=== PATIENT | female | born 1940 | race Caucasian/White ===

== ENCOUNTER 2018-10-25 12:08 | Inpatient (IN) | payer MEDICARE ==
[~2018-10-25] VITALS: Ht 160 cm; Wt 69.5 kg
[~2018-10-25 12:08] MED LIST: ASPI-1071 PO; ATOR20TA66 PO; CLOP75TA35 PO; GLUC1KIT2 SUBCUT; LANTUS SQ; NITR0.4T51 SL; PANT40TA4 PO
[2018-10-25] MEDS ORDERED: CLOP75TA33 PO (12:54)
[2018-10-25] MEDS ORDERED: NITR0.4T48 SL (12:54)
[2018-10-25] MEDS ORDERED: ATOR20TA66 PO (12:54)
[2018-10-25] MEDS ORDERED: ASPI-611 PO (12:54)
[2018-10-25] MEDS ORDERED: METO-395 PO (12:54)
[2018-10-25] MEDS ORDERED: INSU100V9 SQ (12:54)
[2018-10-25] MEDS ORDERED: HYDROcodone/acetaminophen 5mg/325mg tablet PO ONE (14:30)
[2018-10-25] MEDS ORDERED: ondansetron 4mg rapidly disintigrating tab PO ONE (14:30)
[2018-10-25] MEDS ORDERED: mag hydrox/Alum hydrox/simeth 30ml oral suspension PO PRN (15:30)
[2018-10-25] MEDS ORDERED: morphine 2 MG/ML inj. syringe IV PRN (15:30)
[2018-10-25] MEDS ORDERED: magnesium hydroxide 30ml (MOM) UD suspension PO PRN (15:30)
[2018-10-25] MEDS ORDERED: ondansetron/PF 4mg/2ml inj IV PRN (15:30)
[2018-10-25 15:36] LABS: BASOPHILS # (AUTO) 0.2 X10'3 (0-0.2); EOSINOPHILS # (AUTO) 0.3 X10'3 (0-0.9); EOSINOPHILS % (AUTO) 3.2 % (0-6); HEMATOCRIT 41.6 % (35.0-45.0); HEMOGLOBIN 13.8 g/dl (12.0-16.0); LYMPHOCYTES # (AUTO) 2.3 X10'3 (1.1-4.8); MEAN CORPUSCULAR HEMOGLOBIN 28.3 PG (27.0-31.0); MEAN CORPUSCULAR HGB CONC 33.1 g/dL (33.0-36.5); MEAN CORPUSCULAR VOLUME 85.3 FL (78-98); MONOCYTES % (AUTO) 9.9 % (2-12); NEUTROPHILS # (AUTO) 6.5 X10'3 (1.8-7.7); NEUTROPHILS % (AUTO) 62.9 % (42-75); PLATELET COUNT 262 X10'3 (140-440); RED BLOOD COUNT 4.87 X10'6 (4.20-5.60); RED CELL DISTRIBUTION WIDTH 13.7 % (11.5-14.5); WHITE BLOOD COUNT 10.4 X10'3 (4.5-11.0)
[2018-10-25 15:40] LABS: CLARITY,URINE CLEAR (Clear); COLOR,URINE STRAW (Yellow); GLUCOSE, URINE NEGATIVE (Neg); KETONES,URINE NEGATIVE (Neg); LEUKOCYTE ESTERASE ,URINE NEGATIVE (Neg); NITRITES, URINE NEGATIVE (Neg); OCCULT BLOOD,URINE NEGATIVE (Neg); PROTEIN,URINE NEGATIVE (Neg); UROBILINOGEN,URINE 0.2 E.U/dL (0.2-1.0)
[2018-10-25 15:41] LABS: UA COLLECTION TYPE STRAIGHT CATH
[2018-10-25 15:50] LABS: ALANINE AMINOTRANSFERASE 27 U/L (12-78); ALBUMIN 3.5 G/DL (3.4-5.0); ALBUMIN/GLOBULIN RATIO 0.9 (1.1-1.5); ALKALINE PHOSPHATASE 73 IU/L (46-116); ANION GAP 8 (8-16); ASPARTATE AMINO TRANSFERASE 19 U/L (10-37); BLOOD UREA NITROGEN 21 MG/DL (7-18); BUN/CREATININE RATIO 23.6 (6.6-38.0); CALCIUM 8.6 MG/DL (8.5-10.1); CHLORIDE 106 MMOL/L (99-107); CREATININE 0.89 MG/DL (0.40-0.90); GLUCOSE 124 MG/DL (70-104); SODIUM 140 MMOL/L (135-145); TOTAL PROTEIN 7.5 G/DL (6.4-8.2); eGFR 61 ML/MIN
[2018-10-25] MEDS: normal saline 1000ml 1,000 ML IV SCH (15:54)
--- NOTE | 2018-10-25 16:30 | NUR ---
I have received patient report from [facility]
[2018-10-25 18:00] VITALS: BP 130/58
--- NOTE | 2018-10-25 18:17 | NUR ---
Patient report given to Breanna
--- NOTE | 2018-10-25 18:25 | NUR ---
Received report from Shereen RU[facility], assumed care of patient.
[2018-10-25] MEDS: heparin, porcine 5000 units/ml vial SQ SCH (20:23)
[2018-10-25] MEDS: insulin glargine (Lantus) pen - multi-dose SQ SCH (20:49)
[2018-10-25] MEDS ORDERED: INSULIN GLARGINE HUM REC ANLOG 12 UNIT SQ SCH (21:00)
[2018-10-25] MEDS: acetaminophen 325mg tablet PO PRN (21:06)
[2018-10-25 22:00] VITALS: BP 111/56
[2018-10-26] VITALS (21 sets, daily range): BP systolic 100–161; BP diastolic 46–80
[2018-10-26] MEDS: morphine 2 MG/ML inj. syringe IV PRN ×5 (00:37→20:50)
[2018-10-26] MEDS: normal saline 1000ml 1,000 ML IV SCH ×3 (02:41→16:16)
--- NOTE | 2018-10-26 06:10 | NUR ---
Gave report to Shereen RUBY.
--- NOTE | 2018-10-26 06:27 | NUR ---
I have received patient report from Breanna [facility]
[2018-10-26 06:52] LABS: BASOPHILS # (AUTO) 0.2 X10'3 (0-0.2)
[2018-10-26 06:56] LABS: BASOPHILS % (AUTO) 1.9 % (0-1); EOSINOPHILS # (AUTO) 0.5 X10'3 (0-0.9); EOSINOPHILS % (AUTO) 5.5 % (0-6); HEMATOCRIT 38.2 % (35.0-45.0); HEMOGLOBIN 12.6 g/dl (12.0-16.0); LYMPHOCYTES # (AUTO) 2.4 X10'3 (1.1-4.8); LYMPHOCYTES % (AUTO) 29.4 % (21-51); MEAN CORPUSCULAR HEMOGLOBIN 28.3 PG (27.0-31.0); MEAN CORPUSCULAR HGB CONC 32.9 g/dL (33.0-36.5); MEAN CORPUSCULAR VOLUME 85.9 FL (78-98); MEAN PLATELET VOLUME 8.8 FL (7.4-10.4); MONOCYTES # (AUTO) 0.9 X10'3 (0-0.9); MONOCYTES % (AUTO) 10.5 % (2-12); NEUTROPHILS # (AUTO) 4.4 X10'3 (1.8-7.7); NEUTROPHILS % (AUTO) 52.7 % (42-75); PLATELET COUNT 231 X10'3 (140-440); RED BLOOD COUNT 4.45 X10'6 (4.20-5.60); RED CELL DISTRIBUTION WIDTH 13.7 % (11.5-14.5); WHITE BLOOD COUNT 8.3 X10'3 (4.5-11.0)
[2018-10-26 06:57] LABS: ALBUMIN 2.9 G/DL (3.4-5.0); ANION GAP 6 (8-16); BLOOD UREA NITROGEN 20 MG/DL (7-18); CALCIUM 7.8 MG/DL (8.5-10.1); CHLORIDE 108 MMOL/L (99-107); CREATININE 0.87 MG/DL (0.40-0.90); GLUCOSE 116 MG/DL (70-104); POTASSIUM 4.2 MMOL/L (3.5-5.1); SODIUM 140 MMOL/L (135-145); TOTAL CARBON DIOXIDE 25.7 MMOL/L (24-32); eGFR 63 ML/MIN
[2018-10-26] MEDS ORDERED: non-formulary drug (Aspirin (Aspir 81) 1 TAB) PO SCH (08:00)
[2018-10-26] MEDS: clopidogrel 75mg tablet PO SCH (08:20)
[2018-10-26] MEDS: aspirin 81mg tablet.DR PO SCH (08:20)
[2018-10-26] MEDS: heparin, porcine 5000 units/ml vial SQ SCH ×2 (08:23→20:50)
[2018-10-26] MEDS: metoprolol succinate 25mg (24-HOUR) SR. Tablet PO SCH (08:23)
[2018-10-26] MEDS: atorvastatin 20mg tablet PO SCH (08:24)
[2018-10-26] MEDS: acetaminophen 325mg tablet PO PRN (08:24)
[2018-10-26] MEDS ORDERED: aspirin 81mg tab.chew PO SCH (08:30)
--- NOTE | 2018-10-26 09:00 | NUR ---
CALLED [facility] AND TOLD HER THE PATIENT WAS GETTING HEPARIN, PLAVIX AND ASPIRIN, SHE CHECKED WITH ANESTHESIA AND SHE CALLED ME BACK SAID IT WAS OKAY TO GIVE THESE MEDS.
--- NOTE | 2018-10-26 09:45 | NUR ---
DM consult: Pt with T2DM with A1c 7.2. Pt admit with left femoral neck fracture s/p fall, currently in surgery holding room pending surgery. Pt previously admitted and provided with written DM ed with referral to outpatient DM class and RD contact information 09/06/18. Will continue to follow and monitor need for f/u verbal DM education. Addendum: 10/26/18 at [address] Amended: Links added.
--- NOTE | 2018-10-26 13:34 | NUR ---
PATIENT REPORT CALLED TO [facility] IN [facility]
[2018-10-26] MEDS ORDERED: ringers solution, lacted 1,000 ML IV SCH (13:54)
[2018-10-26] MEDS ORDERED: morphine 4 MG/ML inj SYRINge IV PRN ×2 (13:55)
[2018-10-26] MEDS ORDERED: meperidine/PF 25mg/ml syringe IV PRN ×3 (13:55)
[2018-10-26] MEDS ORDERED: proCHLORperazine 10 MG/2 ml inj IV PRN (13:55)
[2018-10-26] MEDS ORDERED: ondansetron/PF 4mg/2ml inj IV PRN (13:55)
[2018-10-26 14:07] LABS: PARTIAL THROMBOPLASTIN TIME 30 SECONDS (22-32)
[2018-10-26] MEDS ORDERED: fentaNYL/PF 50MCG/1 ML 2ML syringe ONE (14:09)
[2018-10-26] MEDS ORDERED: midazolam 2 mg/2 ml injection ONE (14:09)
[2018-10-26] MEDS ORDERED: desflurane 240ml liquid inh. IH ONE (14:10)
[2018-10-26] MEDS ORDERED: ceFAZolin 1000mg inj ONE ×2 (14:29)
[2018-10-26] MEDS ORDERED: etomidate 2mg/ml inj. ONE (14:30)
[2018-10-26] MEDS ORDERED: BUPIVAcaine/PF 2.5 mg/ml (0.25%) 30ml vial ONE (14:40)
[2018-10-26] MEDS ORDERED: ondansetron/PF 4mg/2ml inj ONE (14:48)
[2018-10-26] MEDS ORDERED: dexamethasone sod phosphate 4mg/ml inj. ONE (14:48)
--- NOTE | 2018-10-26 15:07 | NUR ---
Received from OR via ORTHO BED WITH [facility], accompanied by Anesthesiologist YUMIKO and report given by Anesthesiolgist. PATIENT WITH IZAGUIRRE CATHETER PRESENT WITH CLEAR YELLOW URINE. LEFT HIP DRESSING IS CDI. NO DRAINAGE PRESENT. + DORSALIS PEDIS. Addendum: 10/26/18 at 1540 by Twan Tiwari RN, RN Amended: Links added.
--- NOTE | 2018-10-26 15:55 | NUR ---
I have received report from Twan [facility]
--- NOTE | 2018-10-26 15:57 | NUR ---
Report called to receiving nurse. Transferred via ORTHO BED WITH NO Belongings . Special Issues communicated to receiving nurse JENS RN.PATIENT VSS. STATES PAIN IS STARTING TO BEGIN, RN PRESENT TO ASSIST WITH SET UP, CALL LIGHT PRESENT. DRESSING STILL SPOTTY WITH BLOOD BUT INTACT. TELEMETRY ON AND NOTIFIED. SPOUSE ACCOMPANIED TO THE 4TH FLOOR. Addendum: 10/26/18 at 1612 by Twan Tiwari RN RN Amended: Links added.
[2018-10-26] MEDS: CLINDAMYCIN/D5W 900mg/50ml 50 ML IV SCH ×2 (16:16→23:41)
[2018-10-26] MEDS: HYDROcodone/acetaminophen 10/325mg tab PO PRN ×3 (17:05→23:03)
--- NOTE | 2018-10-26 18:29 | NUR ---
I spoke to Dr. Higgins and he said okay to order 2 norco instead of just one. Patient in severe pain, a second norco given.
--- NOTE | 2018-10-26 18:30 | NUR ---
Received report from Shereen RUBY, Assumed care of patient.
--- NOTE | 2018-10-26 18:30 | NUR ---
Patient report given to Breanna [facility]BY
[2018-10-26] MEDS: insulin glargine (Lantus) pen - multi-dose SQ SCH (21:01)
[2018-10-27 02:00] VITALS: BP 126/56
[2018-10-27] MEDS: normal saline 1000ml 1,000 ML IV SCH ×3 (03:49→22:44)
[2018-10-27] MEDS: HYDROcodone/acetaminophen 10/325mg tab PO PRN ×3 (04:47→15:32)
[2018-10-27 06:10] VITALS: BP 119/70
--- NOTE | 2018-10-27 06:30 | NUR ---
Gave report to Shereen RUBY.
--- NOTE | 2018-10-27 06:31 | NUR ---
I have received patient report from Breanna [facility]
[2018-10-27 07:26] LABS: BASOPHILS # (AUTO) 0.1 X10'3 (0-0.2); BASOPHILS % (AUTO) 0.5 % (0-1); EOSINOPHILS % (AUTO) 0 % (0-6); HEMATOCRIT 39.3 % (35.0-45.0); HEMOGLOBIN 13.2 g/dl (12.0-16.0); LYMPHOCYTES # (AUTO) 1.1 X10'3 (1.1-4.8); LYMPHOCYTES % (AUTO) 10.6 % (21-51); MEAN CORPUSCULAR HEMOGLOBIN 28.7 PG (27.0-31.0); MEAN CORPUSCULAR HGB CONC 33.5 g/dL (33.0-36.5); MEAN CORPUSCULAR VOLUME 85.6 FL (78-98); MEAN PLATELET VOLUME 8.8 FL (7.4-10.4); MONOCYTES # (AUTO) 0.7 X10'3 (0-0.9); MONOCYTES % (AUTO) 6.3 % (2-12); NEUTROPHILS # (AUTO) 8.7 X10'3 (1.8-7.7); NEUTROPHILS % (AUTO) 82.6 % (42-75); PLATELET COUNT 283 X10'3 (140-440); RED BLOOD COUNT 4.59 X10'6 (4.20-5.60); RED CELL DISTRIBUTION WIDTH 13.8 % (11.5-14.5); WHITE BLOOD COUNT 10.5 X10'3 (4.5-11.0)
[2018-10-27 07:49] LABS: ANION GAP 12 (8-16); BLOOD UREA NITROGEN 18 MG/DL (7-18); BUN/CREATININE RATIO 18.2 (6.6-38.0); CALCIUM 7.6 MG/DL (8.5-10.1); CHLORIDE 103 MMOL/L (99-107); CREATININE 0.99 MG/DL (0.40-0.90); GLUCOSE 145 MG/DL (70-104); POTASSIUM 4.3 MMOL/L (3.5-5.1); SODIUM 136 MMOL/L (135-145); TOTAL CARBON DIOXIDE 21.2 MMOL/L (24-32); eGFR 54 ML/MIN
[2018-10-27] MEDS: atorvastatin 20mg tablet PO SCH (08:08)
[2018-10-27] MEDS: clopidogrel 75mg tablet PO SCH (08:08)
[2018-10-27] MEDS: aspirin 81mg tablet.DR PO SCH (08:09)
[2018-10-27] MEDS: CLINDAMYCIN/D5W 900mg/50ml 50 ML IV SCH (08:10)
[2018-10-27] MEDS: metoprolol succinate 25mg (24-HOUR) SR. Tablet PO SCH (08:10)
[2018-10-27] MEDS: heparin, porcine 5000 units/ml vial SQ SCH ×2 (08:10→20:44)
[2018-10-27 10:00] VITALS: BP 93/44
[2018-10-27 14:00] VITALS: BP 109/56
[2018-10-27 18:00] VITALS: BP 115/43
--- NOTE | 2018-10-27 18:39 | NUR ---
PATIENT REPORT GIVEN TO [facility]
--- NOTE | 2018-10-27 18:52 | NUR ---
Patient in room ORTHO 4012. I have received report from celestina and had the opportunity to ask questions and assume patient care.
[2018-10-27] MEDS: insulin glargine (Lantus) pen - multi-dose SQ SCH (20:49)
[2018-10-27 22:00] VITALS: BP 119/53
[2018-10-28] MEDS: acetaminophen 325mg tablet PO PRN (00:37)
[2018-10-28 06:00] VITALS: BP 160/85
[2018-10-28 06:07] LABS: BASOPHILS # (AUTO) 0.1 X10'3 (0-0.2); BASOPHILS % (AUTO) 1.4 % (0-1); EOSINOPHILS # (AUTO) 0.5 X10'3 (0-0.9); EOSINOPHILS % (AUTO) 4.5 % (0-6); HEMATOCRIT 37.1 % (35.0-45.0); HEMOGLOBIN 12.1 g/dl (12.0-16.0); LYMPHOCYTES # (AUTO) 3.2 X10'3 (1.1-4.8); LYMPHOCYTES % (AUTO) 30.8 % (21-51); MEAN CORPUSCULAR HEMOGLOBIN 28.1 PG (27.0-31.0); MEAN CORPUSCULAR HGB CONC 32.7 g/dL (33.0-36.5); MEAN CORPUSCULAR VOLUME 85.9 FL (78-98); MEAN PLATELET VOLUME 8.6 FL (7.4-10.4); MONOCYTES # (AUTO) 0.9 X10'3 (0-0.9); MONOCYTES % (AUTO) 9.2 % (2-12); NEUTROPHILS # (AUTO) 5.6 X10'3 (1.8-7.7); NEUTROPHILS % (AUTO) 54.1 % (42-75); PLATELET COUNT 240 X10'3 (140-440); RED BLOOD COUNT 4.31 X10'6 (4.20-5.60); RED CELL DISTRIBUTION WIDTH 13.7 % (11.5-14.5); WHITE BLOOD COUNT 10.3 X10'3 (4.5-11.0)
--- NOTE | 2018-10-28 06:23 | NUR ---
Problems reprioritized. Patient report given, questions answered & plan of care reviewed with FLORI Hughes.
[2018-10-28 06:26] LABS: ALBUMIN 2.7 G/DL (3.4-5.0); ANION GAP 9 (8-16); BLOOD UREA NITROGEN 23 MG/DL (7-18); CALCIUM 7.9 MG/DL (8.5-10.1); CHLORIDE 111 MMOL/L (99-107); CREATININE 0.92 MG/DL (0.40-0.90); GLUCOSE 112 MG/DL (70-104); POTASSIUM 3.8 MMOL/L (3.5-5.1); SODIUM 141 MMOL/L (135-145); TOTAL CARBON DIOXIDE 21.5 MMOL/L (24-32); eGFR 59 ML/MIN
[2018-10-28] MEDS: HYDROcodone/acetaminophen 10/325mg tab PO PRN (07:27)
[2018-10-28] MEDS: atorvastatin 20mg tablet PO SCH (08:32)
[2018-10-28] MEDS: metoprolol succinate 25mg (24-HOUR) SR. Tablet PO SCH (08:32)
[2018-10-28] MEDS: clopidogrel 75mg tablet PO SCH (08:32)
[2018-10-28] MEDS: aspirin 81mg tablet.DR PO SCH (08:32)
[2018-10-28] MEDS: heparin, porcine 5000 units/ml vial SQ SCH (08:33)
[2018-10-28 11:03] VITALS: BP 118/42
== END 2018-10-28 14:45 | DRG 482 ==
LOC: ER 12:08 → ORTHO 4S 17:37
PROVIDERS: ADMIT Family Medicine; ATTEND Family Medicine
PROC: 0QH734Z Insertion of Internal Fixation Device into Left Upper Femur, Percutaneous Approach (ICD-10-PCS; principal; 2018-10-26 14:10)
DX: S72.032A Displaced midcervical fracture of left femur, initial encounter for closed fracture (principal); I25.10 Atherosclerotic heart disease of native coronary artery without angina pectoris; E11.9 Type 2 diabetes mellitus without complications; I10 Essential (primary) hypertension; W10.8XXA Fall (on) (from) other stairs and steps, initial encounter; Y93.01 Activity, walking, marching and hiking; I25.2 Old myocardial infarction; Z79.82 Long term (current) use of aspirin; Z87.891 Personal history of nicotine dependence; Y92.89 Other specified places as the place of occurrence of the external cause; Y99.8 Other external cause status; Z88.0 Allergy status to penicillin; Z98.42 Cataract extraction status, left eye; Z98.41 Cataract extraction status, right eye; Z79.899 Other long term (current) drug therapy; Z79.4 Long term (current) use of insulin; Z95.5 Presence of coronary angioplasty implant and graft
CPT/HCPCS: 36415; 71045; 73501; 73502; 76000; 80048; 80053; 81003; 82948; 85025; 85610; 85730; 87081; 93005; 97110; 97116; 97161; 97530; 99285; A4618; A6222; A7000; C1713; G0378; J0690; J1100; J1644; J1815; J2250; J2270; J2405; J3010; J3490; J7030; J7120

== ENCOUNTER 2023-02-07 13:31 | Inpatient (IN) | payer MEDICARE ==
[~2023-02-07] VITALS: Ht 167.6 cm; Wt 71.9 kg
[~2023-02-07 13:31] MED LIST changes: -ASPI-1071 PO; +ASPI-611 PO; +CLOP75TA33 PO; -CLOP75TA35 PO; -GLUC1KIT2 SUBCUT; +INSU100V9 SQ; -LANTUS SQ; +METO-395 PO; +NITR0.4T48 SL; -NITR0.4T51 SL; -PANT40TA4 PO
[2023-02-07 17:02] LABS: ALANINE AMINOTRANSFERASE 37 U/L (12-78); ALBUMIN 3.8 G/DL (3.4-5.0); ALBUMIN/GLOBULIN RATIO 0.9 (1.1-1.5); ALKALINE PHOSPHATASE 88 IU/L (46-116); ANION GAP 8 (8-16); ASPARTATE AMINO TRANSFERASE 34 U/L (10-37); BILIRUBIN,TOTAL 1.9 MG/DL (0.1-1.0); BLOOD UREA NITROGEN 26 MG/DL (7-18); BUN/CREATININE RATIO 26.5 (10.0-20.0); CALCIUM 8.9 MG/DL (8.5-10.1); CHLORIDE 100 MMOL/L (99-107); CREATININE 0.98 MG/DL (0.40-0.90); GLUCOSE 341 MG/DL (70-104); POTASSIUM 4.2 MMOL/L (3.5-5.1); SODIUM 132 MMOL/L (135-145); TOTAL CARBON DIOXIDE 23.8 MMOL/L (24-32); TOTAL PROTEIN 8.1 G/DL (6.4-8.2); eCRCL 40 ML/MIN; eGFR 54 ML/MIN
[2023-02-07 17:11] LABS: PRO BRAIN NATRIURETIC PEPTIDE 3442 PG/ML (0-450)
[2023-02-07 17:58] LABS: BASOPHILS # (AUTO) 0.2 X10'3 (0-0.2); BASOPHILS % (AUTO) 2.3 % (0-1); EOSINOPHILS # (AUTO) 0.2 X10'3 (0-0.9); MONOCYTES # (AUTO) 0.9 X10'3 (0-0.9); RED CELL DISTRIBUTION WIDTH 15.8 % (11.5-14.5)
[2023-02-07 17:59] LABS: EOSINOPHILS % (AUTO) 1.9 % (0-6); HEMATOCRIT 51.8 % (35.0-45.0); HEMOGLOBIN 16.8 g/dl (12.0-16.0); LYMPHOCYTES # (AUTO) 2.5 X10'3 (1.1-4.8); LYMPHOCYTES % (AUTO) 24.4 % (21-51); MEAN CORPUSCULAR HEMOGLOBIN 27.8 PG (27.0-31.0); MEAN CORPUSCULAR HGB CONC 32.5 g/dL (33.0-36.5); MEAN CORPUSCULAR VOLUME 85.6 FL (78-98); MEAN PLATELET VOLUME 8.9 FL (7.4-10.4); MONOCYTES % (AUTO) 9.3 % (2-12); NEUTROPHILS # (AUTO) 6.3 X10'3 (1.8-7.7); NEUTROPHILS % (AUTO) 62.1 % (42-75); PLATELET COUNT 224 X10'3 (140-440); RED BLOOD COUNT 6.05 X10'6 (4.20-5.60); WHITE BLOOD COUNT 10.1 X10'3 (4.5-11.0)
[2023-02-07 18:57] LABS: PLATELET ESTIMATE NORMAL; TOTAL CELLS COUNTED 100
[2023-02-07] MEDS ORDERED: insulin regular, human 10 units/0.1 ml syringe IV ONE (20:25)
[2023-02-07] MEDS ORDERED: insulin regular, human 10 units/0.1 ml syringe SQ STA (20:58)
[2023-02-07] MEDS ORDERED: potassium Cl 20 mEq SR tablet PO PRN (21:00)
[2023-02-07] MEDS ORDERED: potassium Cl 40MEQ/1/2NS 520ml 520 ML IV PRN (21:00)
[2023-02-07] MEDS ORDERED: mag hydrox/Alum hydrox/simeth 30ml oral suspension PO PRN (21:00)
[2023-02-07] MEDS ORDERED: ondansetron/PF 4mg/2ml inj IV PRN (21:00)
[2023-02-07] MEDS ORDERED: acetaminophen 325mg tablet PO PRN (21:00)
[2023-02-07] MEDS ORDERED: magnesium 4gm in 100ml NS 100 ML IV PRN (21:00)
[2023-02-07] MEDS ORDERED: magnesium Cl slow-release 64mg tablet PO PRN (21:00)
[2023-02-07] MEDS ORDERED: magnesium 2GM in 50ml NS 50 ML IV PRN (21:00)
[2023-02-07] MEDS ORDERED: magnesium hydroxide 30ml (MOM) UD suspension PO PRN (21:00)
[2023-02-07] MEDS ORDERED: furosemide 10 MG/1 ML 10ml inj IV ONE (21:05)
[2023-02-07] MEDS ORDERED: DEXTROSE 15 GM of carb/4 tabs (each vial/BOTTLE has 4 tablets) PO PRN ×2 (21:05)
[2023-02-07] MEDS ORDERED: lisinopril 10 MG tablet PO ONE (21:05)
[2023-02-07] MEDS ORDERED: MESSAGE TO PHARMACY PO ONE (21:05)
[2023-02-07] MEDS ORDERED: dextrose 50%-water 50ml dispensing syringe IV PRN ×2 (21:05)
[2023-02-07] MEDS ORDERED: glucagon, human recombinant 1mg kit SUBCUT PRN (21:05)
[2023-02-07] MEDS ORDERED: lisinopril 5mg tablet PO ONE (21:25)
[2023-02-07 21:46] LABS: HEMOGLOBIN A1C 10.7 % (4.5-6.2)
[2023-02-08] VITALS (7 sets, daily range): BP systolic 97–156; BP diastolic 70–97; PULSE 96–112; RESP 14–18; TEMP 96.9–97.9; O2SAT 95–97
[2023-02-08 01:02] LABS: APTT 26 SECONDS (22-32); FIBRINOGEN 433 MG/DL (177-424); INR 1.5 INR
[2023-02-08] MEDS ORDERED: warfarin 4mg tablet PO ONE (02:00)
[2023-02-08] MEDS: docusate sod 100mg capsule PO SCH ×2 (07:58→20:00)
[2023-02-08] MEDS: amiodarone 200mg tablet PO SCH ×2 (07:58→20:03)
[2023-02-08] MEDS: furosemide 20MG tablet PO SCH (07:59)
[2023-02-08] MEDS: K and/or MAG REPLACEMENT MC SCH ×2 (08:00→20:00)
[2023-02-08] MEDS ORDERED: lisinopril 10 MG tablet PO SCH (08:00)
[2023-02-08 08:10] LABS: BASOPHILS # (AUTO) 0.2 X10'3 (0-0.2); EOSINOPHILS # (AUTO) 0.2 X10'3 (0-0.9); EOSINOPHILS % (AUTO) 2.1 % (0-6); HEMATOCRIT 49.8 % (35.0-45.0); HEMOGLOBIN 16.4 g/dl (12.0-16.0); LYMPHOCYTES # (AUTO) 2.2 X10'3 (1.1-4.8); LYMPHOCYTES % (AUTO) 21.6 % (21-51); MEAN CORPUSCULAR VOLUME 84.8 FL (78-98); MEAN PLATELET VOLUME 9.3 FL (7.4-10.4); MONOCYTES % (AUTO) 9.2 % (2-12); NEUTROPHILS # (AUTO) 6.8 X10'3 (1.8-7.7); NEUTROPHILS % (AUTO) 65.1 % (42-75); PLATELET COUNT 215 X10'3 (140-440); RED BLOOD COUNT 5.88 X10'6 (4.20-5.60); RED CELL DISTRIBUTION WIDTH 15.6 % (11.5-14.5); WHITE BLOOD COUNT 10.4 X10'3 (4.5-11.0)
[2023-02-08 08:39] LABS: ALANINE AMINOTRANSFERASE 31 U/L (12-78); ALBUMIN 3.6 G/DL (3.4-5.0); ALBUMIN/GLOBULIN RATIO 0.9 (1.1-1.5); ALKALINE PHOSPHATASE 89 IU/L (46-116); ANION GAP 8 (8-16); ASPARTATE AMINO TRANSFERASE 28 U/L (10-37); BILIRUBIN,TOTAL 2.6 MG/DL (0.1-1.0); BLOOD UREA NITROGEN 21 MG/DL (7-18); BUN/CREATININE RATIO 23.3 (10.0-20.0); CALCIUM 8.9 MG/DL (8.5-10.1); CHLORIDE 101 MMOL/L (99-107); GLUCOSE 205 MG/DL (70-104); MAGNESIUM 1.8 MG/DL (1.5-2.4); POTASSIUM 3.4 MMOL/L (3.5-5.1); SODIUM 138 MMOL/L (135-145); TOTAL CARBON DIOXIDE 29.1 MMOL/L (24-32); TOTAL PROTEIN 7.6 G/DL (6.4-8.2); eCRCL 44 ML/MIN; eGFR 60 ML/MIN
[2023-02-08] MEDS: lisinopril 5mg tablet PO SCH (08:53)
[2023-02-08] MEDS: potassium Cl 20 mEq SR tablet PO PRN ×3 (08:54→20:02)
[2023-02-08] MEDS: insulin Lispro (HumaLOG) vial - multi-dose SQ SCH ×3 (08:56→21:45)
[2023-02-08] MEDS ORDERED: metoprolol succinate 25mg (24-HOUR) SR. Tablet PO ONE (12:30)
[2023-02-08] MEDS ORDERED: ondansetron 4mg rapidly disintigrating tab PO PRN (14:35)
[2023-02-08] MEDS ORDERED: insulin glargine (Lantus) pen - multi-dose SQ SCH (21:00)
[2023-02-09 02:00] VITALS: BP 135/77; PULSE 97; RESP 14; TEMP 97.8; O2SAT 96
[2023-02-09 07:00] VITALS: BP 142/66; PULSE 85; RESP 20; TEMP 97.5; O2SAT 95
[2023-02-09 07:53] LABS: BASOPHILS % (AUTO) 0.2 % (0-1); EOSINOPHILS # (AUTO) 0.2 X10'3 (0-0.9); EOSINOPHILS % (AUTO) 2.8 % (0-6); HEMATOCRIT 46.9 % (35.0-45.0); HEMOGLOBIN 15.5 g/dl (12.0-16.0); LYMPHOCYTES # (AUTO) 1.9 X10'3 (1.1-4.8); LYMPHOCYTES % (AUTO) 21.5 % (21-51); MEAN CORPUSCULAR HGB CONC 33.1 g/dL (33.0-36.5); MEAN CORPUSCULAR VOLUME 84.4 FL (78-98); MEAN PLATELET VOLUME 9.4 FL (7.4-10.4); MONOCYTES % (AUTO) 11.3 % (2-12); NEUTROPHILS # (AUTO) 5.6 X10'3 (1.8-7.7); NEUTROPHILS % (AUTO) 64.2 % (42-75); PLATELET COUNT 193 X10'3 (140-440); RED BLOOD COUNT 5.56 X10'6 (4.20-5.60); RED CELL DISTRIBUTION WIDTH 15.5 % (11.5-14.5); WHITE BLOOD COUNT 8.6 X10'3 (4.5-11.0)
[2023-02-09] MEDS: lisinopril 5mg tablet PO SCH (07:53)
[2023-02-09] MEDS: furosemide 20MG tablet PO SCH (07:53)
[2023-02-09] MEDS: amiodarone 200mg tablet PO SCH (07:53)
[2023-02-09] MEDS: docusate sod 100mg capsule PO SCH (07:54)
[2023-02-09 08:00] VITALS: RESP 16; O2SAT 97
[2023-02-09] MEDS ORDERED: metoprolol succinate 25mg (24-HOUR) SR. Tablet PO SCH (08:00)
[2023-02-09] MEDS ORDERED: atorvastatin 20mg tablet PO SCH (08:00)
[2023-02-09] MEDS ORDERED: EMPAGLIFLOZIN 10 MG TABLET PO SCH (08:00)
[2023-02-09 08:03] LABS: INR 1.6 INR
[2023-02-09] MEDS: insulin Lispro (HumaLOG) vial - multi-dose SQ SCH ×2 (09:05→13:35)
[2023-02-09 09:17] LABS: ALANINE AMINOTRANSFERASE 24 U/L (12-78); ALBUMIN 3.1 G/DL (3.4-5.0); ALBUMIN/GLOBULIN RATIO 0.9 (1.1-1.5); ALKALINE PHOSPHATASE 74 IU/L (46-116); ANION GAP 10 (8-16); ASPARTATE AMINO TRANSFERASE 22 U/L (10-37); BILIRUBIN,TOTAL 2.2 MG/DL (0.1-1.0); BLOOD UREA NITROGEN 23 MG/DL (7-18); BUN/CREATININE RATIO 23.2 (10.0-20.0); CALCIUM 8.7 MG/DL (8.5-10.1); CHLORIDE 101 MMOL/L (99-107); CREATININE 0.99 MG/DL (0.40-0.90); GLUCOSE 231 MG/DL (70-104); MAGNESIUM 1.7 MG/DL (1.5-2.4); POTASSIUM 3.9 MMOL/L (3.5-5.1); PRO BRAIN NATRIURETIC PEPTIDE 985 PG/ML (0-450); SODIUM 134 MMOL/L (135-145); TOTAL CARBON DIOXIDE 22.8 MMOL/L (24-32); TOTAL PROTEIN 6.7 G/DL (6.4-8.2); eCRCL 40 ML/MIN; eGFR 53 ML/MIN
[2023-02-09] MEDS ORDERED: EMPA10TA PO (10:35)
[2023-02-09] MEDS ORDERED: FURO20TA4 PO (10:35)
[2023-02-09] MEDS ORDERED: METO-395 PO (10:35)
[2023-02-09] MEDS ORDERED: LISI5TAB22 PO (10:35)
[2023-02-09 11:00] VITALS: BP 124/76; PULSE 113; RESP 18; TEMP 97.7; O2SAT 96
[2023-02-09] MEDS ORDERED: WARF-55 PO (12:02)
[2023-02-09] MEDS ORDERED: SPIR25TA PO (12:30)
[2023-02-09] MEDS ORDERED: AMI200T PO (12:35)
[2023-02-09] MEDS ORDERED: POTA-206 PO (19:04)
[2023-02-09] MEDS ORDERED: warfarin 2.5mg tablet PO ONE (21:00)
== END 2023-02-09 15:45 | disposition home or self-care (01) | DRG 308 ==
LOC: ER 13:32 → ED HOLD 20:59 → PCU 3S 02-08 06:56
PROVIDERS: ADMIT Internal Medicine; ATTEND Family Medicine
DX: I48.91 Unspecified atrial fibrillation (principal); I50.21 Acute systolic (congestive) heart failure; I42.9 Cardiomyopathy, unspecified; I25.10 Atherosclerotic heart disease of native coronary artery without angina pectoris; E11.9 Type 2 diabetes mellitus without complications; Z79.899 Other long term (current) drug therapy; Z88.0 Allergy status to penicillin; Z95.5 Presence of coronary angioplasty implant and graft; Z79.82 Long term (current) use of aspirin
CPT/HCPCS: 36415; 71045; 80053; 82948; 83036; 83735; 83880; 84484; 85007; 85025; 85384; 85610; 85730; 87081; 93005; 99285; G0378; J1815; J1940